=== PATIENT | female | born 1990 | race Caucasian/White ===

== ENCOUNTER 2016-09-07 01:29 | Emergency (ER) | payer BC ==
[2016-09-07] MEDS ORDERED: IBUPROFEN 800 MG TABLET ONE (02:10)
--- NOTE | 2016-09-07 07:52 | RAD ---
09/07/2016 7:48 AM CHEST - 2 VIEWS History: Chest pain and back pain starting at 1800 hours, worsening. Comparison: None Findings: Two views of the chest are obtained. The lungs are clear with out effusion or pneumothorax. The cardiomediastinal silhouette is unremarkable.. The osseous structures are intact.. IMPRESSION: No acute intrathoracic process.
== END 2016-09-07 02:38 | disposition home or self-care (01) ==
LOC: ED 01:29
DX: R07.9 Chest pain, unspecified (principal)
CPT/HCPCS: 71020; 99283 ×2; 93005; A9270

== ENCOUNTER 2016-10-13 20:16 | Emergency (ER) | payer BC, MEDICAID ==
[2016-10-13 21:59] LABS: SPECIFIC GRAVITY 1.015 (1.001-1.030); URINE BILIRUBIN NEGATIVE (NEGATIVE); URINE BLOOD NEGATIVE (NEGATIVE); URINE GLUCOSE (UA) NEGATIVE (NEGATIVE); URINE LEUKOCYTE ESTERASE 2+ (NEGATIVE); URINE NITRITE NEGATIVE (NEGATIVE); URINE PROTEIN NEGATIVE (NEGATIVE); URINE UROBILINOGEN NORMAL (0-1 mg/dl)
[2016-10-13 22:02] LABS: HCG,QUALITATIVE URINE NEGATIVE
[2016-10-13 22:12] LABS: URINE APPEARANCE SL CLOUDY; URINE COLOR YELLOW
[2016-10-13 22:13] LABS: URINE AMORPHOUS SEDIMENT FEW; URINE BACTERIA 1+
[2016-10-13 23:07] LABS: SPECIFIC GRAVITY 1.015 (1.001-1.030); URINE BILIRUBIN NEGATIVE (NEGATIVE); URINE BLOOD NEGATIVE (NEGATIVE); URINE GLUCOSE (UA) NEGATIVE (NEGATIVE); URINE LEUKOCYTE ESTERASE NEGATIVE (NEGATIVE); URINE NITRITE NEGATIVE (NEGATIVE); URINE PROTEIN NEGATIVE (NEGATIVE); URINE UROBILINOGEN NORMAL (0-1 mg/dl)
[2016-10-13 23:07] LABS: ABSOLUTE NEUTROPHIL COUNT 6.1 K/mm3 (1.8-7.7); BASO % 0.4 % (0.2-1.0); EOS # 0.3 (0.0-0.5); EOS % 2.5 % (0.9-2.9); HEMATOCRIT 42.9 % (37.0-47.0); HEMOGLOBIN 13.6 gm/l (12.0-16.0); IMM NEUT% 0.3 % (0-1); LYMPH # 3.5 (1.0-4.8); MEAN CELL VOLUME 88.6 fl (81.0-99.0); MEAN CORPUSCULAR HEMOGLOBIN 28.1 pg (27.0-31.0); MEAN CORPUSCULAR HGB CONC 31.7 g/dl (33.0-37.0); MEAN PLATELET VOLUME 9.8 fl (7.4-10.4); MONO % 9.3 % (4-12); NEUT % 55.5 % (43-75); PLATELET COUNT 300 K/mm3 (130-400); RED CELL DISTRIBUTION WIDTH 12.8 % (11.5-14.5)
[2016-10-13 23:08] LABS: URINE APPEARANCE CLEAR; URINE COLOR YELLOW
[2016-10-13 23:26] LABS: ALB/GLOB RATIO 1.1 (>1.0); ALBUMIN 4.3 gm/dL (3.5-5.7); CALCIUM 9.1 mg/dL (8.6-10.3)
== END 2016-10-13 23:54 | disposition home or self-care (01) ==
LOC: ED 20:16
DX: R10.33 Periumbilical pain (principal)